=== PATIENT | male | born 1930 | race Caucasian/White ===

== ENCOUNTER 2017-09-23 00:35 | Observation (INO) | payer BC, OTHER ==
[2017-09-23 00:58] VITALS: BMI 25.0
[2017-09-23] MEDS ORDERED: ALBUTEROL SO4 2.5/IPRATROPIUM 0.5 INH SOL 3 ML VIAL.NEB. NEB ONE ×2 (01:42→01:54)
[2017-09-23 02:12] LABS: BASOPHIL 0.5 % (0-2.0); EOSINOPHIL 0.7 % (0-4.5); MCH 28.8 pg (25.7-33.7); MCHC 33.1 g/dl (32.0-35.9); MEAN PLT VOLUME 8.5 fl (7.5-11.1); NEUTROPHILS 89.6 % (42.8-82.8); PLATELET COUNT 129 K/MM3 (134-434); RDW 15.4 % (11.9-15.9); WHITE BLOOD COUNT 7.2 K/mm3 (4.0-10.0)
--- NOTE | 2017-09-23 02:23 | PDOC ---
History of Present Illness - General Chief Complaint: Respiratory Stated Complaint: DIFFICULTY BREATHING Time Seen by Provider: 09/23/17 01:34 History Source: Patient, Significant Other Exam Limitations: No Limitations - History of Present Illness Initial Comments: 09/23/17 02:18 87yo Male patient w/ PmHx: Malignant neoplasm of right main bronchus, Cervical Vertebrae fx, Gout, BPH, Pneumectomy (Rt) presents to ED c/o trouble breathing and chest congestion that began tonight. Patient states he was expose to numerous family members that have been sick. Associated productive cough and chills. Patient denies CP, Abd pain, Back pain, fever, n/v/d or any other complaints at this time. Pulmonary: Linda ROOT. Timing/Duration: reports: yesterday. denies: just prior to arrival, other, constant, changing over time, getting worse, gone now, intermittent, week, this afternoon, this evening, this morning Severity: reports: moderate. denies: mild, severe Episode Description: See HPI Possible Cause: Yes: illness exposure Modifying Factors: improves with: coughing. worse with: activity, albuterol inhaler, albuterol nebulizer, antibiotics, lying down, oxygen, rest, other Associated Symptoms: reports: wheezing. denies: denies symptoms, chest pain/ soreness, cough, dizziness, earache, facial pain, fever/chills, headache, lightheadedness, muscle aches, nasal congestion, nasal drainage, shortness of breath, sinus infection, sore throat, other Past History - Travel Traveled outside of the country in the last 30 days: No Close contact w/someone who was outside of country & ill: No - Past Medical History Allergies/Adverse Reactions: Allergies Allergy/AdvReac Type Severity Reaction Status Date / Time Penicillins Allergy Mild Verified 09/23/17 00:55 Home Medications: Ambulatory Orders Dutasteride [Avodart] 0.5 mg PO HS 07/18/12 Pravastatin Sodium [Pravachol -] 80 mg PO HS #0 tablet 07/18/12 Allopurinol [Zyloprim -] 300 mg PO DAILY 12/30/14 Acetaminophen [Tylenol .Regular Strength -] 650 mg PO Q4H PRN #1 tablet Nifedipine [Nifedical Xl] 60 mg PO DAILY 08/22/15 Pantoprazole Sodium [Protonix] 40 mg PO PRN PRN 08/22/15 Polyethylene Glycol 3350 [Miralax (For Daily Use) -] 17 gm PO DAILY PRN Cholecalciferol (Vitamin D3) [Vitamin D] 2,000 unit PO DAILY 08/23/15 Docusate Sodium [Colace -] 100 mg PO PRN PRN 07/30/16 Metoprolol Succinate [Toprol Xl -] 50 mg PO DAILY 07/30/16 Anemia: Yes (VIT B12 DEF) Asthma: No Cancer: No Cardiac Disorders: Yes CVA: No COPD: No CHF: No Dementia: No Diabetes: No GI Disorders: Yes Disorders: No HTN: Yes Hypercholesterolemia: Yes Liver Disease: No Seizures: No Thyroid Disease: No - Surgical History Orthopedic Surgery: No - Immunization History Immunization Up to Date: Yes - Suicide/Smoking/Psychosocial Hx Smoking Status: No Smoking History: Unknown if ever smoked Have you smoked in the past 12 months: No Number of Cigarettes Smoked Daily: 0 If you are a former smoker, when did you quit?: STOPPED 25YEARS AGO Information on smoking cessation initiated: No 'Breaking Loose' booklet given: 04/21/13 Hx Alcohol Use: No Drug/Substance Use Hx: No Substance Use Type: None Hx Substance Use Treatment: No Respiratory Specific PMHX - Complaint Specific PMHX Angina: No Bronchitis: No Pneumonia: No Pulmonary Embolus: No TB (Tuberculosis): No Review of Systems - Review of Systems Able to Perform ROS?: Yes Is the patient limited [place] proficient: No Constitutional: Yes: Chills. No: Fever Respiratory: Yes: Cough, Shortness of Breath, Wheezing, Productive cough. No: Stridor Cardiac (ROS): No: Chest Pain, Palpitations, Syncope, Chest Tightness ABD/GI: No: Abdominal Distended, Constipated, Diarrhea, Nausea, Poor Appetite, Poor Fluid Intake, Vomiting, Abdominal cramping : No: Dysuria Musculoskeletal: No: Back Pain All Other Systems: Reviewed and Negative *Physical Exam - Vital Signs Last Vital Signs Temp Pulse Resp BP Pulse Ox 98.2 F 106 H 16 172/94 91 L 09/23/17 00:55 09/23/17 00:55 09/23/17 00:55 09/23/17 00:55 09/23/17 00:55 - Physical Exam General Appearance: Yes: Nourished, Appropriately Dressed. No: Apparent Distress, Mild Distress, Moderate Distress, Severe Distress Respiratory/Chest: positive: Decreased Breath Sounds, Wheezing. negative: Chest Tender, Lungs Clear, Normal Breath Sounds, Respiratory Distress, Accessory Muscle Use, Labored Respiration, Rapid RR, Paradoxal Breathing, Crackles, Rales, Rhonchi, Stridor, Hyperresonant, Dullness, Plerual Rub, Other Cardiovascular: positive: Regular Rhythm, Regular Rate Musculoskeletal: positive: Normal Inspection. negative: CVA Tenderness, Decreased Range of Motion, Vertebral Tenderness Extremity: positive: Normal Capillary Refill, Normal Inspection, Normal Range of Motion. negative: Pedal Edema, Swelling, Calf Tenderness, Erythema, Inflammation Integumentary: positive: Normal Color, Dry, Warm Neurologic: positive: supervisor tower II-XII NML intact, Fully Oriented, Alert, Normal Mood/ Affect, Normal Response, Motor Strength 03/08 ED Treatment Course - LABORATORY CBC & Chemistry Diagram: 09/23/17 01:55 09/23/17 01:55 - ADDITIONAL ORDERS Additional order review: 09/23/17 01:55 RBC 4.68 MCV 87.0 MCHC 33.1 RDW 15.4 MPV 8.5 Neutrophils % 89.6 H Lymphocytes % 4.5 L D Monocytes % 4.7 Eosinophils % 0.7 Basophils % 0.5 - RADIOLOGY Radiology Studies Ordered: Category Date Time Status CHEST X-RAY PORTABLE* [RAD] Stat Radiology 09/23/17 01:41 Ordered - Medications Given in the ED: ED Medications Discontinued Medications Generic Name Dose Route Start Last Admin Trade Name Freq PRN Reason Stop Dose Admin Albuterol/Ipratropium 1 amp 09/23/17 01:42 09/23/17 02:06 Duoneb - NEB 09/23/17 01:43 1 amp ONCE ONE Administration *DC/Admit/Observation/Transfer Diagnosis at time of Disposition: Hypoxia Pneumonia Qualifiers: Pneumonia type: due to unspecified organism Laterality: left Lung location: lower lobe of lung Qualified Code(s): J18.1 - Lobar pneumonia, unspecified organism - Discharge Dispostion Condition at time of disposition: Fair Admit: Yes - Referrals - Patient Instructions - Post Discharge Activity
[2017-09-23 02:24] LABS: INR 1.14 (0.82-1.09); PROTHROMBIN TIME (PATIENT) 12.9 SEC (9.98-11.88)
[2017-09-23 02:42] LABS: ALBUMIN 3.3 g/dl (3.4-5.0); ANION GAP 11 (8-16); BILIRUBIN,TOTAL 0.8 mg/dL (0.2-1.0); CALCIUM 8.3 mg/dL (8.5-10.1); CO2 22 mmol/L (21-32); CREATININE 1.2 mg/dL (0.7-1.3); GLUCOSE,RANDOM 146 mg/dL (74-106); SGOT/AST 16 U/L (15-37); SGPT/ALT 14 U/L (12-78); TOT PROT 6.8 g/dl (6.4-8.2)
[2017-09-23 02:44] LABS: ALK PHOS 80 U/L (45-117); CPK 43 IU/L (39-308); TROPONIN I 0.02 ng/ml (0.00-0.05)
[2017-09-23] MEDS ORDERED: LEVOFLOXACIN 750 MG IVPB 750 MG/150 ML BAG IVPB ONE ×2 (03:12→03:38)
[2017-09-23 04:10] LABS: ALLENS TEST POSITIVE; ART PUNCT SITE RIGHT RADIAL; ARTERIAL BLD GAS O2 SATURATION 92.3 % (90-98.9); ARTERIAL BLOOD GAS BASE EXCESS 0.2 meq/l (-2-2); ARTERIAL BLOOD GAS HCO3 22.9 meq/L (22-26); ARTERIAL BLOOD GAS pH 7.46 (7.35-7.45)
[2017-09-23 04:11] LABS: PT. ON O2? YES
[2017-09-23] MEDS ORDERED: POLYETHYLENE GLYCOL 3350 119 GM BTL PO PRN (04:12)
[2017-09-23] MEDS ORDERED: DOCUSATE SODIUM 100 MG CAPSULE (FP) PO PRN (04:12)
[2017-09-23] MEDS ORDERED: ACETAMINOPHEN 325 MG TABLET (FP) PO PRN (04:12)
[2017-09-23] MEDS ORDERED: PANTOPRAZOLE 40 MG TABLET (FP) PO PRN (04:12)
[2017-09-23 04:13] LABS: METHEMOGLOBIN 0.6 % (0.4-1.5)
[2017-09-23] MEDS ORDERED: SODIUM CHLORIDE 1,000 ML IV STA (04:16)
[2017-09-23] MEDS ORDERED: ALBUTEROL SO4 2.5/IPRATROPIUM 0.5 INH SOL 3 ML VIAL.NEB. NEB PRN (04:17)
[2017-09-23] MEDS: NIFEdipine E.R 60 MG TABLET (UD) PO SCH (09:39)
[2017-09-23] MEDS: ALLOPURINOL 300 MG TABLET (FP) PO SCH (09:40)
[2017-09-23] MEDS: METOPROLOL SUCCINATE 50 MG TAB.SR.24H (FP) PO SCH (09:40)
[2017-09-23] MEDS: CHOLECALCIFEROL (VITAMIN D3) 1,000 UNIT TABLET (FP) PO SCH (09:40)
[2017-09-23] MEDS: ENOXAPARIN NA (PORCINE) 40 MG/0.4 ML DISP.SYRIN SQ SCH (09:42)
--- NOTE | 2017-09-23 10:53 | HP ---
Admitting History and Physical - Primary Care Physician PCP: Chris Montero - Admission Chief Complaint: I have a pneumonia History of Present Illness: Mr Mirza is a pleasant 87 year old male who comes in complaining of feeling ill. He says that he has received his flu shot this year and he believes he received the pneumonia shot in the past. He states his and kids recently had the flu and he caught it as well. However they recovered and he continued to feel worse. He says he mainly had a productive cough with green sputum and general malaise. He denies fevers, chills, lightheadedness, dizziness , passing out, chest pain, shortness of breath, nausea, vomiting, diarrhea, constipation, or swelling. He says that he received antibiotics and he is already feeling better and expects to be able to go home tomorrow. History Source: Patient Limitations to Obtaining History: No Limitations - Past Medical History Cardiovascular: Yes: HTN, Hyperlipdemia Pulmonary: Yes: Cancer Renal/: Yes: BPH - Past Surgical History Additional Past Surgical History: Lung resection - Smoking History Smoking history: Former smoker Have you smoked in the past 12 months: No Aproximately how many cigarettes per day: 0 If you are a former smoker, when did you quit?: STOPPED 25YEARS AGO - Alcohol/Substance Use Hx Alcohol Use: No History of Substance Use: reports: None - Social History Usual Living Arrangement: Yes: With Spouse ADL: Independent History of Recent Travel: No Home Medications - Allergies Allergies/Adverse Reactions: Allergies Allergy/AdvReac Type Severity Reaction Status Date / Time Penicillins Allergy Mild Verified 09/23/17 00:55 - Home Medications Home Medications: Ambulatory Orders Dutasteride [Avodart] 0.5 mg PO HS 07/18/12 Pravastatin Sodium [Pravachol -] 80 mg PO HS #0 tablet 07/18/12 Allopurinol [Zyloprim -] 300 mg PO DAILY 12/30/14 Acetaminophen [Tylenol .Regular Strength -] 650 mg PO Q4H PRN #1 tablet Nifedipine [Nifedical Xl] 60 mg PO DAILY 08/22/15 Pantoprazole Sodium [Protonix] 40 mg PO PRN PRN 08/22/15 Polyethylene Glycol 3350 [Miralax (For Daily Use) -] 17 gm PO DAILY PRN Cholecalciferol (Vitamin D3) [Vitamin D] 2,000 unit PO DAILY 08/23/15 Docusate Sodium [Colace -] 100 mg PO PRN PRN 07/30/16 Metoprolol Succinate [Toprol Xl -] 50 mg PO DAILY 07/30/16 Family Disease History - Family Disease History Family Disease History: Other: Father ( from trauma), Mother ( from pneumonia) Review of Systems Findings/Remarks: Full review of systems obtained, as per HPI and otherwise negative. Physical Examination Vital Signs: Vital Signs Temperature 36.4 C L 09/23/17 08:28 Pulse Rate 75 09/23/17 08:28 Respiratory Rate 20 09/23/17 08:28 Blood Pressure 139/67 09/23/17 08:28 O2 Sat by Pulse Oximetry (%) 95 09/23/17 06:00 Constitutional: Yes: Well Nourished, No Distress, Calm Eyes: Yes: Conjunctiva Clear, EOM Intact, PERRL HENT: Yes: Atraumatic, Normocephalic Cardiovascular: Yes: Regular Rate and Rhythm. No: Gallop, Murmur, Rub Respiratory: Yes: Regular, CTA Bilaterally, Cough. No: On BiPap, Rales, Wheezes Gastrointestinal: Yes: Normal Bowel Sounds, Soft. No: Distention, Tenderness Extremities: Yes: WNL Edema: No Labs: CBC, BMP 09/23/17 01:55 09/23/17 01:55 Imaging - Results Chest X-ray: Report Reviewed, Image Reviewed Problem List - Problems (1) Pneumonia Assessment/Plan: -CAP, with hypoxia on ABG -continue levaquin, renally dosed -feeling improved -evaluate tomorrow, possible discharge on oral course of levaquin Code(s): J18.9 - PNEUMONIA, UNSPECIFIED ORGANISM Qualifiers: Pneumonia type: due to unspecified organism Laterality: left Lung location: lower lobe of lung Qualified Code(s): J18.1 - Lobar pneumonia, unspecified organism (2) HTN (hypertension) Assessment/Plan: -continue toprol xl and nifedipine -monitor Code(s): I10 - ESSENTIAL (PRIMARY) HYPERTENSION (3) HLD (hyperlipidemia) Assessment/Plan: -continue statin Code(s): E78.5 - HYPERLIPIDEMIA, UNSPECIFIED (4) BPH (benign prostatic hyperplasia) Assessment/Plan: -continue avodart Code(s): N40.0 - BENIGN PROSTATIC HYPERPLASIA WITHOUT LOWER URINRY TRACT SYMP Qualifiers: Lower urinary tract symptom presence: symptoms absent Qualified Code(s): N40.0 - Benign prostatic hyperplasia without lower urinary tract symptoms (5) Hypoxia Assessment/Plan: -seen on ABG -secondary to pneumonia -improving -trial off of oxygen tomorrow -prn blayne Code(s): R09.02 - HYPOXEMIA
[2017-09-23 11:48] LABS: BASOPHIL 0.3 % (0-2.0); EOSINOPHIL 0.1 % (0-4.5); MCH 28.5 pg (25.7-33.7); MCHC 32.4 g/dl (32.0-35.9); MEAN CELL VOLUME 87.9 fl (80-96); MEAN PLT VOLUME 8.2 fl (7.5-11.1); PLATELET COUNT 139 K/MM3 (134-434); RDW 15.1 % (11.9-15.9); WHITE BLOOD COUNT 10.1 K/mm3 (4.0-10.0)
[2017-09-23 12:21] LABS: ANION GAP 8 (8-16); CALCIUM 7.9 mg/dL (8.5-10.1); CO2 25 mmol/L (21-32); CREATININE 1.3 mg/dL (0.7-1.3); GLUCOSE,RANDOM 105 mg/dL (74-106)
[2017-09-23] MEDS: LACTOBACILLUS ACIDOPHILUS 1 EACH TAB (FP) PO SCH (12:51)
--- NOTE | 2017-09-23 13:59 | EKG ---
Test Reason : Blood Pressure : / mmHG Vent. Rate : 103 BPM Atrial Rate : 103 BPM P-R Int : 166 ms QRS Dur : 108 ms QT Int : 336 ms P-R-T Axes : 061 052 -06 degrees QTc Int : 440 ms SINUS TACHYCARDIA LEFT VENTRICULAR HYPERTROPHY WITH REPOLARIZATION ABNORMALITY ABNORMAL ECG WHEN COMPARED WITH ECG OF 30-DEC-2014 04:09, T WAVE VARIATION Confirmed by PENELOPE VERA MD ([id number]) on 09/23/2017 1:59:11 PM Referred By: Confirmed By:PENELOPE VERA MD
[2017-09-23 21:23] LABS: URINE APPEARANCE SLCLOUDY; URINE BILIRUBIN NEGATIVE (NEGATIVE); URINE BLOOD NEGATIVE (NEGATIVE); URINE COLOR LTYELLOW; URINE GLUCOSE (UA) NEGATIVE (NEGATIVE); URINE KETONE NEGATIVE (NEGATIVE); URINE NITRITE NEGATIVE (NEGATIVE); URINE UROBILINOGEN NEGATIVE mg/dL (0.2-1.0)
[2017-09-23] MEDS ORDERED: DUTASTERIDE 0.5 MG CAP (FP) PO SCH (22:00)
[2017-09-23] MEDS ORDERED: ATORVASTATIN CA 20 MG TABLET (FP) PO SCH (22:00)
[2017-09-23] MEDS ORDERED: LEVOFLOXACIN 750 MG IVPB 750 MG/150 ML BAG IVPB SCH (22:00)
[2017-09-23] MEDS ORDERED: LEVOFLOXACIN 250 MG IVPB 250 MG/50 ML MG IVPB SCH (22:00)
[2017-09-23 22:06] LABS: URINE PROTEIN 1+ (NEGATIVE)
[2017-09-23 22:08] LABS: URINE RBC 1 /hpf (0-3); URINE WBC 1 /hpf (3-5)
[2017-09-24 06:12] VITALS: TEMP 97.7
[2017-09-24 07:03] LABS: BASOPHIL 0.3 % (0-2.0); MCH 28.4 pg (25.7-33.7); MCHC 32.6 g/dl (32.0-35.9); MEAN CELL VOLUME 86.9 fl (80-96); MEAN PLT VOLUME 8.1 fl (7.5-11.1); NEUTROPHILS 79.3 % (42.8-82.8); PLATELET COUNT 136 K/MM3 (134-434); RDW 15.4 % (11.9-15.9); WHITE BLOOD COUNT 5.2 K/mm3 (4.0-10.0)
[2017-09-24 07:22] LABS: ANION GAP 9 (8-16); CALCIUM 7.9 mg/dL (8.5-10.1); CO2 23 mmol/L (21-32); CREATININE 1.4 mg/dL (0.7-1.3); GLUCOSE,RANDOM 107 mg/dL (74-106); PHOSPHOROUS 3.2 mg/dL (2.5-4.9)
[2017-09-24 09:12] LABS: URINE LEUK ESTERASE Negative (NEGATIVE)
[2017-09-24 09:22] VITALS: BP 109/66; PULSE 78
[2017-09-24] MEDS: LACTOBACILLUS ACIDOPHILUS 1 EACH TAB (FP) PO SCH (09:41)
[2017-09-24] MEDS: CHOLECALCIFEROL (VITAMIN D3) 1,000 UNIT TABLET (FP) PO SCH (09:41)
[2017-09-24] MEDS: ENOXAPARIN NA (PORCINE) 40 MG/0.4 ML DISP.SYRIN SQ SCH (09:41)
[2017-09-24] MEDS: ALLOPURINOL 300 MG TABLET (FP) PO SCH (09:41)
[2017-09-24] MEDS: METOPROLOL SUCCINATE 50 MG TAB.SR.24H (FP) PO SCH (09:41)
[2017-09-24] MEDS: NIFEdipine E.R 60 MG TABLET (UD) PO SCH (09:41)
--- NOTE | 2017-09-24 11:38 | DS ---
Physical Examination Vital Signs: Vital Signs Temperature 36.5 C 09/24/17 09:15 Pulse Rate 78 09/24/17 09:15 Respiratory Rate 18 09/24/17 09:15 Blood Pressure 109/66 09/24/17 09:15 O2 Sat by Pulse Oximetry (%) 97 09/24/17 09:15 Constitutional: Yes: Well Nourished, No Distress, Calm Cardiovascular: Yes: Regular Rate and Rhythm. No: Gallop, Murmur, Rub Respiratory: Yes: Regular, CTA Bilaterally. No: Rales, Rhonchi, Wheezes Gastrointestinal: Yes: Normal Bowel Sounds, Soft. No: Distention, Tenderness Extremities: Yes: WNL Edema: No Labs: CBC, BMP 09/24/17 06:49 09/24/17 06:49 Discharge Summary Reason For Visit: PNEUMONIA, HYPOXIA Hospital Course: (1) Pneumonia Code(s): J18.9 - PNEUMONIA, UNSPECIFIED ORGANISM Qualifiers: Pneumonia type: due to unspecified organism Laterality: left Lung location: lower lobe of lung Qualified Code(s): J18.1 - Lobar pneumonia, unspecified organism (2) HTN (hypertension) Code(s): I10 - ESSENTIAL (PRIMARY) HYPERTENSION (3) HLD (hyperlipidemia) Code(s): E78.5 - HYPERLIPIDEMIA, UNSPECIFIED (4) BPH (benign prostatic hyperplasia) Code(s): N40.0 - BENIGN PROSTATIC HYPERPLASIA WITHOUT LOWER URINRY TRACT SYMP Qualifiers: Lower urinary tract symptom presence: symptoms absent Qualified Code(s): N40.0 - Benign prostatic hyperplasia without lower urinary tract symptoms (5) Hypoxia Code(s): R09.02 - HYPOXEMIA Mr Mirza is a very pleasant 87 year old male who comes in with pneumonia and hypoxia. He was admitted under observation. He received IV levaquin and improved significantly. He was maintained on oxygen for a short time but was able to be weaned off rapidly. He is currently off oxygen and comfortable. He can be transitioned over to oral levaquin to finish the course as an outpatient. He is stable for discharge home on levaquin for 5 days and culturelle for 10 days. 31 minutes spent in preparation of this discharge Condition: Good - Instructions Diet, Activity, Other Instructions: resume previous diet and activity Referrals: Chris Montero MD [Primary Care Provider] - Disposition: HOME - Home Medications Comprehensive Discharge Medication List: Ambulatory Orders Dutasteride [Avodart] 0.5 mg PO HS 07/18/12 Pravastatin Sodium [Pravachol -] 80 mg PO HS #0 tablet 07/18/12 Allopurinol [Zyloprim -] 300 mg PO DAILY 12/30/14 Acetaminophen [Tylenol .Regular Strength -] 650 mg PO Q4H PRN #1 tablet Nifedipine [Nifedical Xl] 60 mg PO DAILY 08/22/15 Pantoprazole Sodium [Protonix] 40 mg PO PRN PRN 08/22/15 Polyethylene Glycol 3350 [Miralax 119 gm Btl -] 17 gm PO DAILY PRN 08/22/15 Cholecalciferol (Vitamin D3) [Vitamin D3] 2,000 unit PO DAILY 08/23/15 Docusate Sodium [Colace -] 100 mg PO PRN PRN 07/30/16 Metoprolol Succinate [Toprol XL -] 50 mg PO DAILY 07/30/16 Lactobacillus Acidophilus [Bacid -] 1 tab PO DAILY #10 tab 09/24/17 Levofloxacin [Levaquin] 500 mg PO DAILY #5 tablet 09/24/17
== END 2017-09-24 11:26 | disposition home or self-care (01) ==
LOC: JER 00:35 → JERBED 03:44 → UNDOADMOB 03:47 → J4S 06:02
PROVIDERS: ADMIT Internal Medicine; ATTEND Internal Medicine
PROC: 3E03329 Introduction of Other Anti-infective into Peripheral Vein, Percutaneous Approach (ICD-10-PCS; principal; 2017-09-23)
PROC: 3E013GC Introduction of Other Therapeutic Substance into Subcutaneous Tissue, Percutaneous Approach (ICD-10-PCS; 2017-09-23)
PROC: 3E0337Z Introduction of Electrolytic and Water Balance Substance into Peripheral Vein, Percutaneous Approach (ICD-10-PCS; 2017-09-23)
PROC: 3E0F7GC Introduction of Other Therapeutic Substance into Respiratory Tract, Via Natural or Artificial Opening (ICD-10-PCS; 2017-09-23)
DX: J18.1 Lobar pneumonia, unspecified organism (principal); R09.02 Hypoxemia; I10 Essential (primary) hypertension; E78.5 Hyperlipidemia, unspecified; C34.91 Malignant neoplasm of unspecified part of right bronchus or lung; N40.0 Benign prostatic hyperplasia without lower urinary tract symptoms; E53.8 Deficiency of other specified B group vitamins; Z90.2 Acquired absence of lung [part of]; Z88.0 Allergy status to penicillin; Z87.891 Personal history of nicotine dependence
CPT/HCPCS: 36415; 36600; 71010-TC; 80048; 80053; 81003; 81015; 82375; 82550; 82803; 83036; 83050; 83605; 83735; 84100; 84484; 85025; 85610; 87040; 93005; 93010; 94640; 96361; 96365; 96366; 96372; 99285-25; G0378

== ENCOUNTER 2018-12-10 09:55 | Emergency (ER) | payer BC, OTHER ==
--- NOTE | 2018-12-10 10:06 | PDOC ---
History of Present Illness - General Chief Complaint: Back Pain Stated Complaint: back pain Time Seen by Provider: 12/10/18 10:06 History Source: Patient Exam Limitations: No Limitations - History of Present Illness Initial Comments: 12/10/18 10:09 Mr Mirza is an 88 yo M h/o male who comes in complaining of back pain His symptoms began while doing nothing in particular He notes lower back pain radiating to the thighs Currently he has no pain because his daughter gave him Flexeril He has a h/o chronic back pain but this is different because it is more severe No fevers or chills No trauma No bowel or bladder incontinence He does note that his feet are intermittently numb He denies weakness, foot drop 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) Meds: okease see JAN ALL: PCN ---> Anaphylaxis in 1978 ROS: GENERAL/CONSTITUTIONAL: No: fever, chills, weakness, loss of appetite. HEAD, EYES, EARS, NOSE AND THROAT: No: change in vision, ear pain, discharge, sore throat, throat swelling. CARDIOVASCULAR: No: chest pain, lightheadedness, palpitations, syncope RESPIRATORY: Yes: cough and wheezing GASTROINTESTINAL: No: nausea, vomiting, abdominal cramping, diarrhea, rectal bleeding, constipation. GENITOURINARY: No: dysuria, hematuria, frequency, urgency, flank pain. MUSCULOSKELETAL: Yes: back pain No: neck pain, joint pain, muscle swelling or pain SKIN: No: lesions, pallor, rash or easy bruising. NEUROLOGIC: No: headache, vertigo, paresthesias, weakness HEMATOLOGIC/LYMPHATIC: No: anemia, easy bleeding, swelling nodes EXAM: GENERAL: The patient is in no acute distress. HEAD: Normal with no signs of trauma. EYES: PERRLA, EOMI, sclera anicteric, conjunctiva clear. ENT: Ears normal, nares patent, oropharynx clear without exudates. Moist mucous membranes. NECK: Normal range of motion, supple LUNGS: Expiratory wheezes throughout HEART:Regular rate and rhythm, normal S1 and S2 without murmur, rub or gallop. ABDOMEN: Soft, nontender, normoactive bowel sounds. No guarding, no rebound. EXTREMITIES: Normal range of motion, no edema. No clubbing or cyanosis. No erythema, or tenderness. Back: No midline cervical, thoracic, or lumbar tenderness, there is lumbar paraspinal muscle tenderness, full ROM of neck and back. No step offs on palpation of the spine. There is no CVA tenderness appreciated bilaterally. Musculoskeletal: The patient has full range of motion of lower extremities bilaterally. 5/5 strength and normal muscle tone. Neuro: Patient is awake, alert, oriented x 3, thought and speech coherent. CN II -XII intact. No cerebellar deficit. Gross motor and sensory exam is found to be intact. Muscle strength is 5/5 lower extremities bilaterally. DTRs, patellar, and Achilles are 1 to 2+ equal bilaterally throughout. Straight leg raise is intact and equal bilaterally. Dorsiflexion and plantar flexion are intact of the bilateral lower extremities. Sensation is intact throughout the distal feet. Difficulty crossing left leg over right leg Patient able to ambulate with a steady gait. Negative Romberg. SKIN: Warm, Dry, normal turgor, no rashes or lesions noted. Past History - Past Medical History Allergies/Adverse Reactions: Allergies Allergy/AdvReac Type Severity Reaction Status Date / Time Penicillins Allergy Mild Verified 12/10/18 09:56 Home Medications: Ambulatory Orders Dutasteride [Avodart] 0.5 mg PO HS 07/18/12 Pravastatin Sodium [Pravachol -] 80 mg PO HS #0 tablet 07/18/12 Allopurinol [Zyloprim -] 300 mg PO DAILY 12/30/14 Cholecalciferol (Vitamin D3) [Vitamin D3] 2,000 unit PO DAILY 08/23/15 Docusate Sodium [Colace -] 100 mg PO PRN PRN 07/30/16 Metoprolol Succinate [Toprol XL -] 50 mg PO DAILY 07/30/16 Amlodipine Besylate 5 mg PO DAILY 12/10/18 Lidocaine 5% Patch [Lidoderm Patch -] 1 patch TP DAILY PRN #30 patch 12/10/18 Methocarbamol [Robaxin -] 500 mg PO TID PRN #21 tablet 12/10/18 Tamsulosin HCl [Flomax] 0.4 mg PO DAILY 12/10/18 Anemia: Yes (VIT B12 DEF) Asthma: No Cancer: No Cardiac Disorders: Yes CVA: No COPD: No CHF: No DVT: No Dementia: No Diabetes: No GI Disorders: Yes Disorders: No HTN: Yes Hypercholesterolemia: Yes Liver Disease: No Seizures: No Thyroid Disease: No - Surgical History Lung Surgery: Yes (pnemectomy) Orthopedic Surgery: No - Immunization History Immunization Up to Date: Yes - Suicide/Smoking/Psychosocial Hx Smoking Status: No Smoking History: Former smoker Have you smoked in the past 12 months: No Number of Cigarettes Smoked Daily: 0 If you are a former smoker, when did you quit?: STOPPED 25YEARS AGO 'Breaking Loose' booklet given: 04/21/13 Hx Alcohol Use: No Drug/Substance Use Hx: No Substance Use Type: None Hx Substance Use Treatment: No Medical Decision Making - Medical Decision Making 12/10/18 11:04 Wheezing: CXR and nebs (r/o atypical pna) will treat with Azithromycin, Prednisone Back pain: Lumbar spine CT (r/o metastatic disease) will give robaxin and tylenol for pain 12/10/18 13:21 Chronic compression of L4 superior endplate Remainder vbodies well aligned No lytic or blastic lesions no gross herniation Multiple renal cysts (left 9 cm) Aneurysm abdominal aorta measuring 3 cm 12/10/18 13:32 Will discharge to home Will prescribed Robaxin 12/10/18 13:[address] Wooten He has reviewed this patients CT Will see this patient in the office *DC/Admit/Observation/Transfer Diagnosis at time of Disposition: Back pain Qualifiers: Back pain location: low back pain Chronicity: chronic Back pain laterality: bilateral Sciatica presence: with sciatica Sciatica laterality: bilateral sciatica Qualified Code(s): M54.42 - Lumbago with sciatica, left side - Discharge Dispostion Disposition: HOME Condition at time of disposition: Stable Decision to Admit order: No - Prescriptions Prescriptions: Lidocaine 5% Patch [Lidoderm Patch -] 1 patch TP DAILY PRN #30 patch PRN Reason: Pain Methocarbamol [Robaxin -] 500 mg PO TID PRN #21 tablet PRN Reason: Pain - Referrals Referrals: Chris Montero MD [Staff Physician] - - Patient Instructions Printed Discharge Instructions: Back Pain (Alternative Therapy), Low Back Pain , DI for Low Back Pain Additional Instructions: Thank you for coming in to the ER today Please be sure to follow up with your primary care physician Take medications as prescribed Return to the ER for re evaluation if symptoms worsen - Post Discharge Activity
[2018-12-10 10:19] VITALS: BP 151/63; PULSE 73; TEMP 98.3; BMI 25.2
[2018-12-10] MEDS ORDERED: ALBUTEROL SO4 0.083% IH SOL 2.5 MG/3 ML VIAL.NEB. NEB ONE ×2 (10:48→10:59)
== END 2018-12-10 13:55 | disposition home or self-care (01) ==
LOC: FER 09:55
PROC: 3E0F7GC Introduction of Other Therapeutic Substance into Respiratory Tract, Via Natural or Artificial Opening (ICD-10-PCS; principal; 2018-12-10)
DX: M54.42 Lumbago with sciatica, left side (principal); M54.41 Lumbago with sciatica, right side; I10 Essential (primary) hypertension; E78.5 Hyperlipidemia, unspecified; N40.0 Benign prostatic hyperplasia without lower urinary tract symptoms; D51.9 Vitamin B12 deficiency anemia, unspecified; Z87.891 Personal history of nicotine dependence; Z85.118 Personal history of other malignant neoplasm of bronchus and lung; Z90.2 Acquired absence of lung [part of]
CPT/HCPCS: 71046-TC-FY; 72131-TC; 99282-25

== ENCOUNTER 2019-12-30 08:41 | Emergency (ER) | payer BC, OTHER ==
--- NOTE | 2019-12-30 08:43 | PDOC ---
History of Present Illness - General Chief Complaint: Pain, Acute Stated Complaint: LEFT SHOULDER PAIN Time Seen by Provider: 12/30/19 08:43 - History of Present Illness Initial Comments: 12/30/19 08:58 89yo male presents ambulatory c/o L shoulder pain. Pt states he missed the last stair yesterday while leaving the house to go play cards. States he fell and landed on his L arm. Pt states he did not hit his head, no loc. No new neck or back pain - pt does have chronic neck pain. Pt denies cp/sob. No palpitations. NO abd pain. No n/v/d. States he was able to get up and walk and went to play cards for 4 hours after the fall. Pt states he did not take any medication for pain last night or this AM. Pt states pain to L arm and bruising today. Pt with small bruise to bridge of nose, no epistaxis and small abrasion/bruise to L anterior knee. Pt denies paresthesias or weakness. No other complaints. Pt placed in a sling for comfort upon arrival in the ER. 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) All: PCN Past History - Past Medical History Allergies/Adverse Reactions: Allergies Allergy/AdvReac Type Severity Reaction Status Date / Time Penicillins Allergy Mild Verified 12/30/19 08:42 Home Medications: Ambulatory Orders Pravastatin Sodium [Pravachol -] 80 mg PO HS #0 tablet 07/18/12 Allopurinol [Zyloprim -] 300 mg PO DAILY 12/30/14 Metoprolol Succinate [Toprol XL -] 50 mg PO DAILY 07/30/16 Amlodipine Besylate 5 mg PO DAILY 12/10/18 Tamsulosin HCl [Flomax] 0.4 mg PO DAILY 12/10/18 Aspirin [ASA -] 81 mg PO DAILY 12/30/19 Finasteride [Proscar -] 5 mg PO DAILY 12/30/19 Oxycodone HCl/Acetaminophen [Percocet 5-325 mg Tablet] 1 tab PO Q6H PRN #10 tablet MDD 4 tabs a day 12/30/19 Pantoprazole Sodium [Protonix -] 40 mg PO DAILY 12/30/19 Anemia: Yes (VIT B12 DEF) Asthma: No Cancer: No Cardiac Disorders: Yes CVA: No COPD: No CHF: No DVT: No Dementia: No Diabetes: No GI Disorders: Yes Disorders: No HTN: Yes Hypercholesterolemia: Yes Liver Disease: No Seizures: No Thyroid Disease: No - Surgical History Lung Surgery: Yes (pnemectomy) Orthopedic Surgery: No - Immunization History Immunization Up to Date: Yes - Psycho Social/Smoking Cessation Hx Smoking Status: No Smoking History: Former smoker Have you smoked in the past 12 months: No Number of Cigarettes Smoked Daily: 0 If you are a former smoker, when did you quit?: STOPPED 25YEARS AGO 'Breaking Loose' booklet given: 04/21/13 Hx Alcohol Use: No Drug/Substance Use Hx: No Substance Use Type: None Hx Substance Use Treatment: No Review of Systems - Review of Systems Able to Perform ROS?: Yes Is the patient limited Welsh proficient: No Constitutional: No: Chills, Fever HEENTM: No: Eye Pain, Blurred Vision, Nose Pain, Nose Congestion, Throat Pain Respiratory: No: Cough, Shortness of Breath Cardiac (ROS): No: Chest Pain, Palpitations, Syncope ABD/GI: No: Diarrhea, Nausea, Vomiting, Abdominal cramping : No: Burning, Dysuria Musculoskeletal: Yes: Joint Pain (L shoulder and humerus pain). No: Back Pain, Neck Pain Integumentary: Yes: Bruising. No: Rash Neurological: No: Headache, Numbness, Paresthesia, Tingling, Weakness, Unsteady Gait, Ataxia, Dizziness All Other Systems: Reviewed and Negative *Physical Exam - Vital Signs 12/30/19 09:14 Selected Entries 12/30/19 08:41 Temperature 97.8 F Pulse Rate 65 Respiratory 17 Rate Blood Pressure 127/64 Blood Pressure 85 Mean O2 Sat by Pulse 96 Oximetry (%) Weight 73.482 kg - Physical Exam General Appearance: Yes: Nourished, Appropriately Dressed. No: Apparent Distress HEENT: positive: EOMI, Normal Voice Neck: positive: Supple. negative: Tender lateral, Tender midline Respiratory/Chest: positive: Lungs Clear, Normal Breath Sounds. negative: Respiratory Distress Cardiovascular: positive: Regular Rhythm, Regular Rate, S1, S2. negative: Edema Gastrointestinal/Abdominal: positive: Soft. negative: Guarding, Rebound, Tenderness Musculoskeletal: positive: Normal Inspection. negative: Decreased Range of Motion, Vertebral Tenderness Extremity: positive: Normal Capillary Refill, Swelling (L upper arm), Other (L upper humerus ttp, L shoulder ttp, ecchymosis upper humerus on L, pulses intact , ttp L elbow at radial head, pulses intact, sensation intact, muscle strength 5 /5 in hand and distal to injury, neurovasc intact distal to injury, L knee with small abrasion anteriorly- no ttp, normal rom). 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 placed in shoulder immobilizer pt neurovasc intact discussed ice and pain control at home pt states he will follow up with orthopedics and pmd stable for dc to home answered all questions and discussed all reasons to return to the ER Discharge - Discharge Information Problems reviewed: Yes Clinical Impression/Diagnosis: Comminuted left humeral fracture Condition: Stable Disposition: HOME - Admission No - Additional Discharge Information Prescriptions: Oxycodone HCl/Acetaminophen [Percocet 5-325 mg Tablet] 1 tab PO Q6H PRN #10 tablet MDD 4 tabs a day PRN Reason: Pain - Follow up/Referral Referrals: Chris Montero MD [Primary Care Provider] - Anuj Diggs DO [Staff Physician] - Evans Sullivan MD [Staff Physician] - Neal Kramer MD [Staff Physician] - - Patient Discharge Instructions Patient Printed Discharge Instructions: How to Use a Sling, DI for Prescription Opioid Use, DI for Humeral Fracture Additional Instructions: Please apply ice - 20 min on and 20 min off. Please take all medications as prescribed. Please do not drive or operate heavy machinery while taking the percocet. Percocet does have tylenol in it. Please do not exceed 4000mg a day of tylenol. Please only take the percocet as needed, you may take tylenol or motrin for pain and use the percocet for extreme pain. Please wear the shoulder immobilizer. Please call your PMD to schedule a follow up appointment and also call the orthopedist to schedule an appointment for follow up. Please return to the ER with any further concerns or complaints. - Post Discharge Activity
[2019-12-30 09:01] VITALS: BP 127/64; PULSE 65; TEMP 97.8; BMI 25.3
== END 2019-12-30 10:34 | disposition home or self-care (01) ==
LOC: FER 08:41
DX: S42.355A Nondisplaced comminuted fracture of shaft of humerus, left arm, initial encounter for closed fracture (principal); W10.9XXA Fall (on) (from) unspecified stairs and steps, initial encounter; Y93.89 Activity, other specified; Y92.89 Other specified places as the place of occurrence of the external cause; Z88.0 Allergy status to penicillin; Z87.891 Personal history of nicotine dependence; I10 Essential (primary) hypertension; E78.00 Pure hypercholesterolemia, unspecified; I51.9 Heart disease, unspecified; K92.9 Disease of digestive system, unspecified
CPT/HCPCS: 73030-TC-LT-FY; 73060-TC-LT-FY; 99283-25

== ENCOUNTER 2020-01-02 16:41 | Emergency (ER) | payer OTHER ==
--- NOTE | 2020-01-02 16:54 | PDOC ---
History of Present Illness - General Chief Complaint: Edema Stated Complaint: CHECK OF LEFT UPPER ARM S/P FRACTURE - History of Present Illness Initial Comments: The pt is an 89M w/ a history of HTN on ASA w/ a recent L comminuted humeral head and neck fx who presents for evaluation of increased LUE ecchymosis/ swelling. The pt denies increased pain, change in sensation, painful movements, or inability to move wrist/digits Denies fevers/chills, chest pain, trouble breathing, N/V Pt to follow up with Dr. Baldev Ochoa, on Saturday01/06/2020 01/02/20 16:55 Past History - Past Medical History Allergies/Adverse Reactions: Allergies Allergy/AdvReac Type Severity Reaction Status Date / Time Penicillins Allergy Mild Verified 01/02/20 16:44 Home Medications: Ambulatory Orders Pravastatin Sodium [Pravachol -] 80 mg PO HS #0 tablet 07/18/12 Allopurinol [Zyloprim -] 300 mg PO DAILY 12/30/14 Metoprolol Succinate [Toprol XL -] 50 mg PO DAILY 07/30/16 Amlodipine Besylate 5 mg PO DAILY 12/10/18 Tamsulosin HCl [Flomax] 0.4 mg PO DAILY 12/10/18 Aspirin [ASA -] 81 mg PO DAILY 12/30/19 Finasteride [Proscar -] 5 mg PO DAILY 12/30/19 Oxycodone HCl/Acetaminophen [Percocet 5-325 mg Tablet] 1 tab PO Q6H PRN #10 tablet MDD 4 tabs a day 12/30/19 Pantoprazole Sodium [Protonix -] 40 mg PO DAILY 12/30/19 Anemia: Yes (VIT B12 DEF) Asthma: No Cancer: No Cardiac Disorders: Yes CVA: No COPD: No CHF: No DVT: No Dementia: No Diabetes: No GI Disorders: Yes Disorders: No HTN: Yes Hypercholesterolemia: Yes Liver Disease: No Seizures: No Thyroid Disease: No - Surgical History Lung Surgery: Yes (pnemectomy) Orthopedic Surgery: No - Immunization History Immunization Up to Date: Yes - Psycho Social/Smoking Cessation Hx Smoking Status: No Smoking History: Former smoker Have you smoked in the past 12 months: No Number of Cigarettes Smoked Daily: 0 If you are a former smoker, when did you quit?: STOPPED 25YEARS AGO 'Breaking Loose' booklet given: 04/21/13 Hx Alcohol Use: No Drug/Substance Use Hx: No Substance Use Type: None Hx Substance Use Treatment: No Review of Systems - Review of Systems Able to Perform ROS?: Yes Comments:: GENERAL/CONSTITUTIONAL: No fever or chills. No weakness HEAD, EYES, EARS, NOSE AND THROAT: No change in vision. No change in hearing. No sore throat CARDIOVASCULAR: No chest pain or shortness of breath RESPIRATORY: Denies cough, hemoptysis GASTROINTESTINAL: No nausea, vomiting, diarrhea or constipation GENITOURINARY: No dysuria, frequency, or change in urination MUSCULOSKELETAL: per HPI SKIN: Bruising to LUE NEUROLOGIC: No headache, vertigo, loss of consciousness, or change in strength/ sensation ENDOCRINE: No increased thirst. No abnormal weight change HEMATOLOGIC/LYMPHATIC: No anemia, easy bleeding, or history of blood clots ALLERGIC/IMMUNOLOGIC: No hives or skin allergy 01/02/20 16:54 Is the patient limited Uzbek proficient: No *Physical Exam - Vital Signs Initial Vital Signs Temp Pulse Resp BP Pulse Ox 97.6 F 70 16 123/55 L 97 01/02/20 16:44 01/02/20 16:44 01/02/20 16:44 01/02/20 16:44 01/02/20 16:44 01/02/20 18:49 - Physical Exam GENERAL: Awake, alert, and oriented to person/place/time, in no acute distress HEAD: No signs of trauma, normocephalic, atraumatic EYES: PERRLA, EOMI, sclera anicteric, conjunctiva clear ENT: Hearing grossly normal, nares patent, oropharynx clear without exudates. Moist mucosa LUNGS: No distress, speaks in full sentences, clear to auscultation bilaterally HEART: Regular rate and rhythm, normal S1 and S2, no murmurs appreciated, peripheral pulses normal and equal bilaterally ABDOMEN: Soft, nontender, normoactive bowel sounds. No guarding, no rebound EXTREMITIES: Edema to left upper extremity thoughout, sensation and pulses intact, ROM of wrist and digits w/o pain, extremity not cool to touch NEUROLOGICAL: Cranial nerves II through XII grossly intact. Normal speech, normal gait, no focal sensorimotor deficits SKIN: Ecchymosis from left chest wall to left wrist 01/02/20 16:54 ED Treatment Course - LABORATORY CBC & Chemistry Diagram: 01/02/20 17:29 - RADIOLOGY Radiograph Interpretation: THIS IS A PRELIMINARY REPORT FROM [facility] DATE OF SERVICE: 2020-01-02 17:59:03 EXAM: UPPER EXTREMITY CT W/O CONTR FINDINGS: Severely comminuted fracture of the humeral neck and humeral head with multiple displaced fragments. The humeral shaft is displaced anteromedially. The humeral head remains within the glenoid fossa. Small to moderate surrounding hematoma with superficial soft tissue edema about the upper arm, shoulder and anterior chest. The visualized portions of the bony thorax are intact 01/02/20 18:47 Medical Decision Making - Medical Decision Making The pt is an 89M w/ a history of HTN on ASA w/ a recent L comminuted humeral head and neck fx who presents for evaluation of increased LUE ecchymosis/ swelling. ED Course Will send CBC given amount of ecchymosis Case discussed with Orthopedist -Pt may follow up on Saturday -Will obtain CT of left shoulder and send pt with disc of images Pt counseled to hold ASA at this time until told to continue by orthopedist or PCP 01/02/20 17:29 CT obtained, shows proximal humerus fx Pt provided with disc Plan for D/C w/ Ortho f/u Discharge instructions and return precautions given Patient in agreement and verbalized understanding Dispo: Home 01/02/20 18:48 Discharge - Discharge Information Problems reviewed: Yes Clinical Impression/Diagnosis: Closed fracture of left proximal humerus Qualifiers: Encounter type: initial encounter Fracture morphology: unspecified fracture morphology Qualified Code(s): S42.202A - Unspecified fracture of upper end of left humerus, initial encounter for closed fracture Condition: Stable Disposition: HOME - Admission No - Follow up/Referral Referrals: Chris Montero MD [Primary Care Provider] - - Patient Discharge Instructions Patient Printed Discharge Instructions: How to Use a Sling Additional Instructions: You were seen in the Emergency Department for evaluation of arm swelling. Keep the arm in the sling and elevated. If you develop painful hand movements, change in sensation/tingling, coolness of the arm, or tightness of the arm go to an Emergency Department urgently. Follow up with your Orthopedist on Saturday. For pain you may take Tylenol 650mg every 6 hours as needed. Return to the Emergency Department if you develop fevers, chest pain, trouble breathing, worsening pain, change in sensation, worsening symptoms, or any new/ concerning symptoms. - Post Discharge Activity
[2020-01-02 17:02] VITALS: BP 123/55; PULSE 70; TEMP 97.6; BMI 30.5
[2020-01-02 18:13] LABS: HEMATOCRIT 33.7 % (35.4-49); HEMOGLOBIN 11.2 GM/dL (11.7-16.9); MCH 31.3 pg (25.7-33.7); MCHC 33.2 g/dl (32.0-35.9); MEAN CELL VOLUME 94.1 fl (80-96); MEAN PLT VOLUME 8.9 fl (7.5-11.1); PLATELET COUNT 146 K/MM3 (134-434); RBC 3.58 M/mm3 (4.00-5.60); RDW 14.9 % (11.9-15.9); WHITE BLOOD COUNT 6.6 K/mm3 (4.0-10.0)
--- NOTE | 2020-01-02 18:50 | PDOC ---
Attending Attestation - Resident Resident Name: John Sommers - ED Attending Attestation I have performed the following: I have examined & evaluated the patient, The case was reviewed & discussed with the resident, I agree w/resident's findings & plan - HPI HPI: 01/02/20 18:44 89-year-old man, comes in for follow-up of a proximal left humeral neck fracture. Patient fell on Saturday, 4 days ago, and was seen in the emergency department where he was diagnosed with a comminuted left humeral neck fracture. He was treated with a sling and swathe, and given orthopedic referrals. He went to his primary physician, and was given an orthopedic referral for this coming Saturday. He returns now because the left arm is very ecchymotic and swollen. He denies any numbness in his hand. He is able to move all the fingers and wrist without difficulty. He has continued to take his aspirin, but he now understands that he was to stop taking the aspirin as it was only indicated for prophylaxis and not for any specific treatment. Patient denies any other injuries or any other complaints. He simply came in because of concern regarding the swelling of the left arm with the ecchymosis. - Physicial Exam PE: 01/02/20 18:46 Vital Signs - 24 hr 01/02/20 16:44 Temperature 97.6 F Pulse Rate 70 Respiratory 16 Rate Blood Pressure 123/55 L O2 Sat by Pulse 97 Oximetry (%) Patient is awake and alert. He is ambulatory without difficulty. His left arm is in a sling and swathe apparatus. There is ecchymosis from the area of the shoulder and anterior left chest wall extending down the left arm all the way to the hand. There is significant soft tissue swelling, but no firm or hard compartments. Pulses in the left arm are normal. Capillary refill in the fingers is less than 2 seconds. Sensation throughout the hand and arm is intact. Range of motion of the fingers is mildly limited by swelling, but otherwise normal. Likewise with the range of motion of the wrist, normal in consideration of the swelling. Skin is intact throughout. Heart is regular rhythm with normal S1 and S2. No murmur. Lungs are clear. Abdomen is soft. Head is without evidence of trauma. Lower extremities are normal. - Medical Decision Making 01/02/20 18:48 89-year-old man on prophylactic aspirin without a specific indication, presents following left comminuted humeral neck fracture. He came in due to ecchymosis and swelling of the left upper extremity. Examination is notable for ecchymosis and swelling, but all signs of compartment syndrome are negative. There is no change in circulation, sensation, or motor function. Given the extensive ecchymosis, a CBC was checked and noted to have a hemoglobin greater than 11. patient's orthopedic surgeon was contacted and advised regarding the findings. CT scan to further define the fracture was ordered. Patient was given a copy of the disc for his orthopedic appointment which has now been moved up to this Saturday. Diagnosis: Comminuted fracture of the left humeral neck Extensive ecchymosis of the left upper extremity secondary to trauma Posttraumatic anemia No evidence of compartment syndrome in the left upper extremity
== END 2020-01-02 19:00 | disposition home or self-care (01) ==
LOC: FER 16:41
DX: S42.202A Unspecified fracture of upper end of left humerus, initial encounter for closed fracture (principal); X58.XXXA Exposure to other specified factors, initial encounter; Y93.89 Activity, other specified; Y92.89 Other specified places as the place of occurrence of the external cause; Z87.891 Personal history of nicotine dependence; I10 Essential (primary) hypertension; E78.00 Pure hypercholesterolemia, unspecified; I51.9 Heart disease, unspecified; Z88.0 Allergy status to penicillin
CPT/HCPCS: 36415; 73200-TC-RT; 85027; 99284-25

== ENCOUNTER 2020-01-04 20:42 | Emergency (ER) | payer OTHER ==
[2020-01-04 20:52] VITALS: BP 157/69; PULSE 82; TEMP 97.7; BMI 25.3
--- NOTE | 2020-01-04 21:18 | PDOC ---
Documentation entered by Lars Gunter SCRIBE, acting as scribe for Avelino Longoria MD. Avelino Longoria MD: This documentation has been prepared by the Jani aldrich Xhesika, SCRIBE, under my direction and personally reviewed by me in its entirety. I confirm that the documentation accurately reflects all work, treatment, procedures, and medical decision making performed by me. History of Present Illness - General Chief Complaint: Bone Injury Stated Complaint: OOZING FROM LEFT ARM Time Seen by Provider: 01/04/20 20:52 History Source: Patient Exam Limitations: No Limitations - History of Present Illness Initial Comments: 01/04/20 21:03 The patient is a 89 y/o male with a PMH of HTN on ASA w/ a recent L comminuted humeral head and neck fx who presents to the ED for bruising, ecchymosis and oozing from left arm. Pt states he was seen here on saturday01/02/20 for similar symptoms and was told he had proximal left humeral neck fracture. Pt states he has an appointment with his orthopedist tomorrow. PAST MEDICAL HISTORY: HTN on ASA w/ a recent L comminuted humeral head and neck fx PAST SURGICAL HISTORY: no significant history FAMILY HISTORY: no pertinent history SOCIAL HISTORY: Pt lives with family and is employed. MEDICATIONS: reviewed ALLERGIES: As per nursing notes 01/04/20 21:11 Assessment and plan: This is an 89-year-old male who fell and fractured his left upper arm in [address] Patient as a result of the fall and fracture has a large amount of ecchymosis and swelling to the arm and anterior chest wall. Patient was on a blood thinner but is no longer taking it. The increase in soft tissue pressure from the swelling resulted in some blood- tinged serosanguineous fluid from the arm which the said has been continuous times this afternoon. I Dermabond to the area that was oozing as well as the surrounding area Dermabond stop the oozing and several 4 x 4's and a Matthew wrap were applied patient put in a sling and discharged Past History - Past Medical History Allergies/Adverse Reactions: Allergies Allergy/AdvReac Type Severity Reaction Status Date / Time Penicillins Allergy Mild Verified 01/04/20 20:43 Home Medications: Ambulatory Orders Pravastatin Sodium [Pravachol -] 80 mg PO HS #0 tablet 07/18/12 Allopurinol [Zyloprim -] 300 mg PO DAILY 12/30/14 Metoprolol Succinate [Toprol XL -] 50 mg PO DAILY 07/30/16 Amlodipine Besylate 5 mg PO DAILY 12/10/18 Tamsulosin HCl [Flomax] 0.4 mg PO DAILY 12/10/18 Aspirin [ASA -] 81 mg PO DAILY 12/30/19 Finasteride [Proscar -] 5 mg PO DAILY 12/30/19 Oxycodone HCl/Acetaminophen [Percocet 5-325 mg Tablet] 1 tab PO Q6H PRN #10 tablet MDD 4 tabs a day 12/30/19 Pantoprazole Sodium [Protonix -] 40 mg PO DAILY 12/30/19 Anemia: Yes (VIT B12 DEF) Asthma: No Cancer: No Cardiac Disorders: Yes CVA: No COPD: No CHF: No DVT: No Dementia: No Diabetes: No GI Disorders: Yes Disorders: No HTN: Yes Hypercholesterolemia: Yes Liver Disease: No Seizures: No Thyroid Disease: No - Surgical History Lung Surgery: Yes (pnemectomy) Orthopedic Surgery: No - Immunization History Immunization Up to Date: Yes - Psycho Social/Smoking Cessation Hx Smoking Status: No Smoking History: Former smoker Have you smoked in the past 12 months: No Number of Cigarettes Smoked Daily: 0 If you are a former smoker, when did you quit?: 30 Information on smoking cessation initiated: No 'Breaking Loose' booklet given: 04/21/13 Hx Alcohol Use: No Drug/Substance Use Hx: No Substance Use Type: None Hx Substance Use Treatment: No Review of Systems - Review of Systems Able to Perform ROS?: Yes Comments:: 01/04/20 21:03 General: No fevers or chills, no weakness, no weight loss HEENT: No change in vision. No sore throat,. No ear pain CardioVascular: No chest pain or shortness of breath Respiratory:No cough, or wheezing. Gastrointestinal: no nausea, vomiting, diarrhea or constipation, No rectal bleeding Genitourinary: No dysuria, hematuria, or frequency Musculoskeletal: +Oozing from L arm. +L arm bruising and ecchymosis. Neurologic: No headache, vertigo, dizziness or loss of consciousness Psychiatric: nor depression Endocrine: no increased thirst or abnormal weight change Allergic: no skin or latex allergy All other systems reviewed and normal *Physical Exam - Vital Signs Last Vital Signs Temp Pulse Resp BP Pulse Ox 97.7 F 82 16 157/69 96 01/04/20 20:48 01/04/20 20:48 01/04/20 20:48 01/04/20 20:48 01/04/20 20:48 - Physical Exam 01/04/20 21:18 GENERAL: The patient is awake, alert, and fully oriented, in no acute distress. HEAD: Normal with no signs of trauma. EYES: Pupils equal, round and reactive to light, extraocular movements intact, sclera anicteric, conjunctiva clear. EXTREMITIES: +Large ecchymotic area in various stages of healing involving the anterior chest wall, L shoulder, L arm and L hand. + moderate amount of soft tissue swelling with a small area of blood tinged serosanguineous fluid discharge from the forearm. +Decreased ROM secondary to pain. Distal pulses intact. NEUROLOGICAL: Normal speech, normal gait. PSYCH: Normal mood, normal affect. Discharge - Discharge Information Problems reviewed: Yes Clinical Impression/Diagnosis: Left upper extremity swelling Comminuted left humeral fracture Qualifiers: Encounter type: subsequent encounter Humerus Location: shaft Fracture type: closed Fracture alignment: nondisplaced Fracture healing: with routine healing Qualified Code(s): S42.355D - Nondisplaced comminuted fracture of shaft of humerus, left arm, subsequent encounter for fracture with routine healing Condition: Stable Disposition: HOME - Admission No - Follow up/Referral - Patient Discharge Instructions Additional Instructions: Keep your appointment with the orthopedist in the morning. Return to the emergency department immediately with ANY new, persistent or worsening symptoms. Continue any medications as previously prescribed by your physician. You should follow up with your primary doctor as soon as possible regarding today's emergency department visit. . Please make sure your doctor reviews the results of your emergency evaluation. Thank you for coming to the Emergency Department today for your care. It was a pleasure to see you today. Please note that your evaluation is INCOMPLETE until you follow-up with your doctor. - Post Discharge Activity
== END 2020-01-04 21:22 | disposition home or self-care (01) ==
LOC: FER 20:42
DX: S42.355D Nondisplaced comminuted fracture of shaft of humerus, left arm, subsequent encounter for fracture with routine healing (principal); Y92.9 Unspecified place or not applicable; I10 Essential (primary) hypertension; E78.00 Pure hypercholesterolemia, unspecified; I51.9 Heart disease, unspecified; D53.8 Other specified nutritional anemias; Z87.891 Personal history of nicotine dependence; Z88.0 Allergy status to penicillin
CPT/HCPCS: 99282-25